=== PATIENT | female | born 1960 | race Caucasian/White ===

== ENCOUNTER 2017-06-20 14:01 | Observation (INO) | payer OTHER ==
[2017-06-20] MEDS ORDERED: Sodium Chloride 0.9% 1,000 ML IV ONE (14:04)
[2017-06-20] MEDS ORDERED: Ondansetron 4 MG/2 ML SDV IVPUSH ONE (14:14)
--- NOTE | 2017-06-20 14:17 | EDM.PDOC ---
ED HPI GENERAL MEDICAL PROBLEM - General Chief Complaint: Diabetic Complaint Stated Complaint: NOT FEELING WELL Time Seen by Provider: 06/20/17 14:02 Source of Information: Reports: Patient, Family History Limitations: Reports: No Limitations - History of Present Illness INITIAL COMMENTS - FREE TEXT/NARRATIVE: HISTORY AND PHYSICAL: History of present illness: Patient is a 56-year-old female who presents to the emergency room with complaints of nausea, vomiting and generalized feeling "unwell" 1 week. Patient is Upper Sor[place]-speaking and does have a family member at the bedside whom she requests to translate. JULIO services was offered (declined). Patient states that over the past week she has had nausea and vomiting and has not been able to keep food or liquids down. As had some intermittent dizziness, headache and weakness which has progressively gotten worse over the past week. Patient was recently diagnosed with type 2 diabetes within the last month and has been placed on Metformin which she has progressively been increasing (as directed by her PCP) to help control her blood sugars. Patient is concerned that this medication is causing her symptoms. Has been checking her blood sugars at home and running in the 100-120 range. Denies any fever, chills, chest pain, shortness of breath, dysuria, diarrhea or constipation. Primary care provider is Dr. Zuniga. Review of systems: As per history of present illness and below otherwise all systems reviewed and negative. Past medical history: As per history of present illness and as reviewed below otherwise noncontributory. Surgical history: As per history of present illness and as reviewed below otherwise noncontributory. Social history: No reported history of drug or alcohol abuse. Family history: As per history of present illness and as reviewed below otherwise noncontributory. Physical exam: General: Well-developed and well-nourished 56-year-old female. Alert and oriented. Nontoxic appearing and in no acute distress. HEENT: Atraumatic, normocephalic, pupils equal and reactive bilaterally, negative for conjunctival pallor or scleral icterus, mucous membranes moist, throat clear, neck supple, nontender, trachea midline. No drooling or trismus noted. No meningeal signs Lungs: Clear to auscultation, breath sounds equal bilaterally, chest nontender. Heart: S1S2, regular rate and rhythm without overt murmur Abdomen: Soft, nondistended, nontender. Negative for masses or hepatosplenomegaly. Negative for costovertebral tenderness. Pelvis: Stable nontender. Genitourinary: Deferred. Rectal: Deferred. Skin: Intact, warm, dry. No lesions or rashes noted. Extremities: Atraumatic, negative for cords or calf pain. Neurovascular unremarkable. Neuro: Awake, alert, oriented. Cranial nerves II through XII unremarkable. Cerebellum unremarkable. Motor and sensory unremarkable throughout. Exam nonfocal. Notes: Upon arrival bedside glucose is 203. We will do routine labs, chest x-ray and EKG. Nursing inform me that her temperature is now over 101, upon arrival was 98.9. We'll obtain BC and give patient some Tylenol and continue to monitor. Temperature is down at this time. VSS. Chest x-ray shows fullness to the right upper lobe, due to her oxygen sat being 92-93% on room air and a white count of 20.9, I am going to treat as a pneumonia. Patient is agreeable to admission. Dr Jesus Wilson was paged at this time. [phone] Dr Wilson is agreeable to keeping this patient as observation. Diagnostics: CBC, CMP, troponin, EKG, one view chest him a UA, bedside blood sugar Therapeutics: IV fluid, Zofran, Rocephin, Azithromycin Impression: Pneumonia Hyponatremia History of Type 2 DM Nausea and Vomiting Plan: Observation admission to Med/Surg Definitive disposition and diagnosis as appropriate pending reevaluation and review of above. Duration: Week(s): Location: Reports: Generalized headache Pain Score (Numeric/FACES): 8 - Related Data Allergies Allergy/AdvReac Type Severity Reaction Status Date / Time No Known Allergies Allergy Verified 06/20/17 14:19 Home Meds: Home Meds Levothyroxine 125 mcg PO DAILY 06/20/17 [History] metFORMIN [Glucophage XR] 500 mg PO DAILY 06/20/17 [History] ED ROS GENERAL - Review of Systems Review Of Systems: ROS reveals no pertinent complaints other than HPI. ED EXAM GENERAL NO PERIP PULSE - Physical Exam Exam: See Below (See dictation) Course - Vital Signs Last Recorded V/S: Last Vital Signs Temp 99.3 F 06/20/17 15:29 Pulse 96 06/20/17 15:29 Resp 16 06/20/17 15:29 BP 106/60 06/20/17 15:29 Pulse Ox 92 L 06/20/17 15:29 - Orders/Labs/Meds Orders: Active Orders 24 hr Category Date Time Status Patient Status [ADT] Stat ADT 06/20/17 16:25 Ordered Blood Glucose Check, Bedside [RC] ONETIME Care 06/20/17 14:05 Active Cardiac Monitoring [RC] . DIRECTED Care 06/20/17 16:25 Ordered EKG Documentation Completion [RC] STAT Care 06/20/17 14:05 Active ABG [BLOOD GAS ARTERIAL] [BG] Stat Lab 06/20/17 14:18 Ordered CULTURE BLOOD [BC] Stat Lab 06/20/17 14:44 Received CULTURE BLOOD [BC] Stat Lab 06/20/17 14:54 Received UA W/MICROSCOPIC [URIN] Stat Lab 06/20/17 14:05 Ordered Azithromycin [Zithromax] 500 mg Med 06/20/17 16:25 Ordered Sodium Chloride 0.9% [Normal Saline] 500 ml IV ONETIME cefTRIAXone [Rocephin in Dextrose,Iso-Osm 1 GM/50 ML] 1 Med 06/20/17 16:25 Ordered gm Premix Bag 1 bag IV ONETIME Blood Culture x2 Reflex Set [OM.PC] Stat Oth 06/20/17 14:32 Ordered Medication Orders Azithromycin 500 mg/ Sodium (Chloride) 500 mls @ 250 mls/hr IV ONETIME ONE Stop: 06/20/17 18:24 Ceftriaxone Sodium/Dextrose 1 (gm/ Premix) 50 mls @ 100 mls/hr IV ONETIME ONE Stop: 06/20/17 16:54 Labs: Laboratory Tests 06/20/17 06/20/17 06/20/17 Range/Units 14:13 14:23 14:23 WBC 20.91 H (4.0-11.0) K/uL RBC 4.41 (4.30-5.90) M/uL Hgb 13.8 (12.0-16.0) g/dL Hct 37.6 (36.0-46.0) % MCV 85.3 (80.0-98.0) fL MCH 31.3 (27.0-32.0) pg MCHC 36.7 (31.0-37.0) g/dL RDW Std Deviation 36.8 (28.0-62.0) fl RDW Coeff of Hans 12 (11.0-15.0) % Plt Count 233 (150-400) K/uL MPV 8.60 (7.40-12.00) fL Add Manual Diff YES Neutrophils % (Manual) 62 (48.0-80.0) % Band Neutrophils % 27 % Lymphocytes % (Manual) 3 L (16.0-40.0) % Monocytes % (Manual) 8 (0.0-15.0) % Nucleated RBC % 0.0 /100WBC Absolute Seg Neuts 13.0 H (1.4-5.7) Band Neutrophils # 5.6 Lymphocytes # (Manual) 0.6 (0.6-2.4) Monocytes # (Manual) 1.7 H (0.0-0.8) Nucleated RBCs # 0 K/uL Sodium 129 L (136-145) mmol/L Potassium 3.6 (3.5-5.1) mmol/L Chloride 95 L (98-107) mmol/L Carbon Dioxide 21.4 (21.0-32.0) mmol/L BUN 13 (7.0-18.0) mg/dL Creatinine 0.8 (0.6-1.0) mg/dL Est Cr Clr Drug Dosing TNP Estimated GFR (MDRD) > 60.0 ml/min Glucose 203 H (74-106) mg/dL POC Glucose 203 H (60-110) mg/dL Calcium 8.4 L (8.5-10.1) mg/dL Total Bilirubin 0.6 (0.2-1.0) mg/dL AST 18 (15-37) IU/L ALT 17 (14-63) IU/L Alkaline Phosphatase 72 (46-116) U/L Troponin I < 0.050 (0.000-0.056) ng/mL Total Protein 8.4 H (6.4-8.2) g/dL Albumin 3.6 (3.4-5.0) g/dL Globulin 4.8 H (2.0-3.5) g/dL Albumin/Globulin Ratio 0.8 L (1.3-2.8) Meds: Medications Generic Name Dose Route Start Last Admin Trade Name Freq PRN Reason Stop Dose Admin Azithromycin 500 mg/ Sodium 500 mls @ 250 mls/hr 06/20/17 16:25 Chloride IV 06/20/17 18:24 ONETIME ONE Ceftriaxone Sodium/Dextrose 1 50 mls @ 100 mls/hr 06/20/17 16:25 gm/ Premix IV 06/20/17 16:54 ONETIME ONE Discontinued Medications Generic Name Dose Route Start Last Admin Trade Name Liza PRN Reason Stop Dose Admin Acetaminophen 1,000 mg 06/20/17 14:32 06/20/17 14:53 Tylenol Extra Strength PO 06/20/17 14:33 1,000 mg ONETIME ONE Administration Sodium Chloride 1,000 mls @ 999 mls/hr 06/20/17 14:04 06/20/17 14:27 Normal Saline IV 06/20/17 15:04 999 mls/hr STAT ONE Administration Ketorolac Tromethamine 30 mg 06/20/17 14:20 06/20/17 14:27 Toradol IVPUSH 06/20/17 14:21 30 mg ONETIME ONE Administration Ketorolac Tromethamine Confirm 06/20/17 14:21 06/20/17 14:33 Toradol Administered 06/20/17 14:22 Not Given Dose 30 mg .ROUTE .STK-MED ONE Ondansetron HCl 4 mg 06/20/17 14:14 06/20/17 14:26 Zofran IVPUSH 06/20/17 14:15 4 mg ONETIME ONE Administration Departure - Departure Time of Disposition: 16:28 Disposition: Refer to Observation Clinical Impression: Hyponatremia, History of diabetes mellitus, type II Pneumonia Qualifiers: Pneumonia type: due to unspecified organism Laterality: right Lung location: upper lobe of lung Qualified Code(s): J18.1 - Lobar pneumonia, unspecified organism Nausea & vomiting Qualifiers: Vomiting type: unspecified Vomiting Intractability: non-intractable Qualified Code(s): R11.2 - Nausea with vomiting, unspecified - Discharge Information Referrals: PCP,None [Primary Care Provider] - Forms: ED Department Discharge - My Orders Last 24 Hours: My Active Orders 06/20/17 14:05 Blood Glucose Check, Bedside [RC] ONETIME EKG Documentation Completion [RC] STAT UA W/MICROSCOPIC [URIN] Stat 06/20/17 14:18 ABG [BLOOD GAS ARTERIAL] [BG] Stat 06/20/17 14:32 Blood Culture x2 Reflex Set [OM.PC] Stat 05/11/18 14:44 CULTURE BLOOD [BC] Stat 06/20/17 14:54 CULTURE BLOOD [BC] Stat 06/20/17 16:25 Patient Status [ADT] Stat Cardiac Monitoring [RC] . DIRECTED Azithromycin [Zithromax] 500 mg Sodium Chloride 0.9% [Normal Saline] 500 ml IV ONETIME cefTRIAXone [Rocephin in Dextrose,Iso-Osm 1 GM/50 ML] 1 gm Premix Bag 1 bag IV ONETIME - Assessment/Plan Last 24 Hours: My Active Orders 06/20/17 14:05 Blood Glucose Check, Bedside [RC] ONETIME EKG Documentation Completion [RC] STAT UA W/MICROSCOPIC [URIN] Stat 06/20/17 14:18 ABG [BLOOD GAS ARTERIAL] [BG] Stat 06/20/17 14:32 Blood Culture x2 Reflex Set [OM.PC] Stat 06/20/17 14:44 CULTURE BLOOD [BC] Stat 06/20/17 14:54 CULTURE BLOOD [BC] Stat 06/20/17 16:25 Patient Status [ADT] Stat Cardiac Monitoring [RC] . DIRECTED Azithromycin [Zithromax] 500 mg Sodium Chloride 0.9% [Normal Saline] 500 ml IV ONETIME cefTRIAXone [Rocephin in Dextrose,Iso-Osm 1 GM/50 ML] 1 gm Premix Bag 1 bag IV ONETIME
[2017-06-20] MEDS ORDERED: Ketorolac 30 MG/ML SDV IVPUSH ONE (14:20)
[2017-06-20] MEDS ORDERED: Ketorolac 30 MG/ML SDV ONE (14:21)
[2017-06-20] MEDS ORDERED: Acetaminophen 500 MG Tab PO ONE (14:32)
[2017-06-20 14:56] LABS: CHLORIDE,CL 95 mmol/L (98-107); SODIUM,NA 129 mmol/L (136-145)
--- NOTE | 2017-06-20 15:25 | CT ---
EXAMINATION: Non contrast CT head. Coronal and sagittal reformats. HISTORY: Pain FINDINGS: No evidence of intra or extra axial hemorrhage, mass, midline shift, hydrocephalus or edema. No hyp oattenuation changes in the major vascular territories to suggest acute infarct. Minimal subcortical white matter hypodensities noted frontally. No abnormal intracranial calcifications are detected. No evidence of substantial vascular calcificat ions. Small amount of fluid noted within the maxillary sinuses and the left sphenoid sinus. Mucosal thicken ing within the ethmoid air cells. Mastoid air cells are clear. Orbits and globes are symmetric. Pituitary fossa appears unremarkable. The calvarium is intact. No evidence of skull fracture. IMPRESSION: 1. No acute intracranial findings. 2. Mild paranasal sinus disease. 3. Likely early small vessel ischemic changes.
--- NOTE | 2017-06-20 15:30 | CR ---
EXAMINATION: PA chest radiograph. HISTORY: Feeling unwell. FINDINGS: The trachea is midline. The cardiomediastinal silhouette is within normal limits. Trace right suprahi lar fullness. No pleural effusion or pneumothorax. Osseous structures appear unremarkable. IMPRESSION: Trace right suprahilar fullness, a minimal underlying infiltrate cannot be excluded.
[2017-06-20] MEDS ORDERED: Azithromycin 500 MG in Sodium Chloride 0.9% 500 ML IV ONE (16:25)
[2017-06-20] MEDS ORDERED: Azithromycin 500 MG AdvVial IV ONE (17:05)
[2017-06-20] MEDS ORDERED: Sodium Chloride 0.9% 250 ML ONE (17:07)
[2017-06-20] MEDS ORDERED: Azithromycin 500 MG in Sodium Chloride 0.9% 250 ML IV ONE (17:23)
[2017-06-20] MEDS: cefTRIAXone 1 GM in Premix Bag 1 BAG IV ONE ×2 (17:24→20:00)
[2017-06-20] MEDS ORDERED: Albuterol/Ipratropium 3.0-0.5 MG/3 ML Neb Soln NEB PRN (17:56)
[2017-06-20] MEDS ORDERED: Ondansetron 4 MG/2 ML SDV IVPUSH PRN (17:56)
[2017-06-20] MEDS ORDERED: Docusate Sodium 100 MG Cap PO PRN (17:56)
--- NOTE | 2017-06-20 18:26 | PCM.HP ---
H&P History of Present Illness - General Date of Service: 06/20/17 Admit Problem/Dx: Admission Diagnosis/Problem Admission Diagnosis/Problem Pneumonia - History of Present Illness Initial Comments - Free Text/Narative: 56-year-old female with history of NIDDM and Hypothyroidsim is admitted for CAP , Hyponatremia, Nausea and Vomiting. She does not speak [place]i but daughter is fluent and present for translation. For the past 5 days she has been experiencing nausea, vomiting, productive cough with yellow sputum and sob. She had fever yesterday but did not measure it. She was diagnosed with DM 2 months ago and was started on Metformin. Patient thinks that this is all related to her Metformin. Symptoms continued to worsen and therefore she decided to present to ED. Primary care provider is Dr. Zuniga. In the ED she was febrile with mild tachycardia. CBC, CMP, troponin, EKG and CXR were obtained. She was found to have WBC count 20k, Na 129, glucose 203. CXR was consistent with pneumonia. She was treated with IVF, Zofran and single dose of Azithromycin 500 mg IV. headache Pain Score (Numeric/FACES): 8 - Related Data Allergies/Adverse Reactions: Allergies Allergy/AdvReac Type Severity Reaction Status Date / Time No Known Allergies Allergy Verified 06/20/17 14:19 Home Medications: Home Meds Levothyroxine 125 mcg PO DAILY 06/20/17 [History] metFORMIN [Glucophage XR] 500 mg PO DAILY 06/20/17 [History] Past Medical History HEENT History: Reports: None Cardiovascular History: Reports: None Respiratory History: Reports: None Gastrointestinal History: Reports: None Genitourinary History: Reports: None [employer]IAN History: Reports: Musculoskeletal History: Reports: None Neurological History: Reports: None Psychiatric History: Reports: None Endocrine/Metabolic History: Reports: Diabetes, Type II, Hypothyroidism Hematologic History: Reports: None Immunologic History: Reports: None Oncologic (Cancer) History: Reports: None Dermatologic History: Reports: None - Past Surgical History Head Surgeries/Procedures: Reports: None HEENT Surgical History: Reports: None Cardiovascular Surgical History: Reports: None Respiratory Surgical History: Reports: None GI Surgical History: Reports: None Female Surgical History: Reports: None Endocrine Surgical History: Reports: Thyroid Biopsy Neurological Surgical History: Reports: None Musculoskeletal Surgical History: Reports: None Oncologic Surgical History: Reports: None Dermatological Surgical History: Reports: None Social & Family History - Family History Family Medical History: Noncontributory - Tobacco Use Smoking Status *Q: Never Smoker Second Hand Smoke Exposure: No - Caffeine Use Caffeine Use: Reports: None - Recreational Drug Use Recreational Drug Use: No H&P Review of Systems - Review of Systems: Review Of Systems: See Below General: Reports: No Symptoms HEENT: Reports: No Symptoms Pulmonary: Reports: Shortness of Breath, Cough, Sputum Cardiovascular: Reports: No Symptoms Gastrointestinal: Reports: Diarrhea, Nausea, Vomiting Genitourinary: Reports: No Symptoms Musculoskeletal: Reports: No Symptoms Skin: Reports: No Symptoms Psychiatric: Reports: No Symptoms Neurological: Reports: Headache, Numbness, Tingling Hematologic/Lymphatic: Reports: No Symptoms Immunologic: Reports: No Symptoms Exam - Exam Exam: See Below - Vital Signs Vital Signs: Last Vital Signs Temp 37.4 C 06/20/17 15:29 Pulse 96 06/20/17 15:29 Resp 16 06/20/17 15:29 BP 106/60 06/20/17 15:29 Pulse Ox 92 L 06/20/17 15:29 Weight: 64.41 kg - Exam General: Alert, Oriented, Cooperative HEENT: Conjunctiva Clear, EACs Clear, EOMI, Hearing Intact, Mucosa Moist & [place] , Nares Patent, Normal Nasal Septum, Posterior Pharynx Clear, Pupils Equal, Pupils Reactive Neck: Supple, Trachea Midline Lungs: Clear to Auscultation, Normal Respiratory Effort Cardiovascular: Regular Rate, Regular Rhythm GI/Abdominal Exam: Normal Bowel Sounds, Soft, Non-Tender, No Distention Extremities: Normal Inspection, No Pedal Edema, Normal Capillary Refill Skin: Warm, Dry, Intact Neurological: Cranial Nerves Intact Neuro Extensive - Mental Status: Alert, Oriented x3 Psychiatric: Alert, Normal Affect, Normal Mood - Patient Data Lab Results Last 24 hrs: Laboratory Results - last 24 hr 06/20/17 06/20/17 06/20/17 Range/Units 14:13 14:23 14:23 WBC 20.91 H (4.0-11.0) K/uL RBC 4.41 (4.30-5.90) M/uL Hgb 13.8 (12.0-16.0) g/dL Hct 37.6 (36.0-46.0) % MCV 85.3 (80.0-98.0) fL MCH 31.3 (27.0-32.0) pg MCHC 36.7 (31.0-37.0) g/dL RDW Std Deviation 36.8 (28.0-62.0) fl RDW Coeff of Hans 12 (11.0-15.0) % Plt Count 233 (150-400) K/uL MPV 8.60 (7.40-12.00) fL Add Manual Diff YES Neutrophils % (Manual) 62 (48.0-80.0) % Band Neutrophils % 27 % Lymphocytes % (Manual) 3 L (16.0-40.0) % Monocytes % (Manual) 8 (0.0-15.0) % Nucleated RBC % 0.0 /100WBC Absolute Seg Neuts 13.0 H (1.4-5.7) Band Neutrophils # 5.6 Lymphocytes # (Manual) 0.6 (0.6-2.4) Monocytes # (Manual) 1.7 H (0.0-0.8) Nucleated RBCs # 0 K/uL Sodium 129 L (136-145) mmol/L Potassium 3.6 (3.5-5.1) mmol/L Chloride 95 L (98-107) mmol/L Carbon Dioxide 21.4 (21.0-32.0) mmol/L BUN 13 (7.0-18.0) mg/dL Creatinine 0.8 (0.6-1.0) mg/dL Est Cr Clr Drug Dosing TNP Estimated GFR (MDRD) > 60.0 ml/min Glucose 203 H (74-106) mg/dL POC Glucose 203 H (60-110) mg/dL Calcium 8.4 L (8.5-10.1) mg/dL Total Bilirubin 0.6 (0.2-1.0) mg/dL AST 18 (15-37) IU/L ALT 17 (14-63) IU/L Alkaline Phosphatase 72 (46-116) U/L Troponin I < 0.050 (0.000-0.056) ng/mL Total Protein 8.4 H (6.4-8.2) g/dL Albumin 3.6 (3.4-5.0) g/dL Globulin 4.8 H (2.0-3.5) g/dL Albumin/Globulin Ratio 0.8 L (1.3-2.8) Result Diagrams: 06/20/17 14:23 06/20/17 14:23 Problem List Initiated/Reviewed/Updated: Yes Orders Last 24hrs: Active Orders 24 hr Category Date Time Status Patient Status [ADT] Routine ADT 06/20/17 17:56 Ordered Patient Status [ADT] Stat ADT 06/20/17 16:25 Active Blood Glucose Check, Bedside [RC] ONETIME Care 06/20/17 14:05 Active Blood Glucose Check, Bedside [RC] QIDACANDBED Care 06/20/17 17:56 Ordered Cardiac Monitoring [RC] . DIRECTED Care 06/20/17 16:25 Active EKG Documentation Completion [RC] STAT Care 06/20/17 14:05 Active Intake and Output [RC] QSHIFT Care 06/20/17 17:58 Ordered May Shower [RC] ASDIRECTED Care 06/20/17 17:56 Ordered Oxygen Therapy [RC] PRN Care 06/20/17 17:56 Ordered Oxygen Therapy, ED [RC] ASDIRECTED Care 06/20/17 16:30 Active RT Aerosol Therapy [RC] ASDIRECTED Care 06/20/17 18:03 Ordered Up ad Ela [RC] ASDIRECTED Care 06/20/17 17:56 Ordered VTE/DVT Education [RC] PER UNIT ROUTINE Care 06/20/17 17:56 Ordered Vital Signs [RC] Q4H Care 06/20/17 17:56 Ordered [employer] Diet [DIET] Diet 06/20/17 Breakfast Active Fluid Restriction [DIET] Diet 06/21/17 Breakfast Ordered ABG [BLOOD GAS ARTERIAL] [BG] Stat Lab 06/20/17 14:18 Ordered BASIC METABOLIC PANEL,BMP [CHEM] AM Lab 06/21/17 05:11 Ordered BASIC METABOLIC PANEL,BMP [CHEM] AM Lab 06/22/17 05:11 Ordered BASIC METABOLIC PANEL,BMP [CHEM] AM Lab 06/23/17 05:11 Ordered BASIC METABOLIC PANEL,BMP [CHEM] AM Lab 06/24/17 05:11 Ordered BASIC METABOLIC PANEL,BMP [CHEM] AM Lab 06/25/17 05:11 Ordered CBC WITH AUTO DIFF [HEME] AM Lab 06/21/17 05:11 Ordered CBC WITH AUTO DIFF [HEME] AM Lab 06/22/17 05:11 Ordered CBC WITH AUTO DIFF [HEME] AM Lab 06/23/17 05:11 Ordered CBC WITH AUTO DIFF [HEME] AM Lab 06/24/17 05:11 Ordered CBC WITH AUTO DIFF [HEME] AM Lab 06/25/17 05:11 Ordered CULTURE BLOOD [BC] Stat Lab 06/20/17 14:44 Received CULTURE BLOOD [BC] Stat Lab 06/20/17 14:54 Received CULTURE SPUTUM + SMEAR [RM] Routine Lab 06/20/17 17:56 Ordered UA W/MICROSCOPIC [URIN] Stat Lab 06/20/17 14:05 Ordered Acetaminophen [Tylenol] Med 06/20/17 17:56 Ordered 650 mg PO Q4H PRN Albuterol/Ipratropium [DuoNeb 3.0-0.5 MG/3 ML] Med 06/20/17 17:56 Ordered 3 ml NEB Q4HRRT PRN Azithromycin [Zithromax] Med 06/21/17 16:00 Ordered 500 mg PO Q24H Docusate Sodium [Colace] Med 06/20/17 17:56 Ordered 100 mg PO BID PRN Heparin Sodium Med 06/20/17 18:00 Ordered 5,000 units SUBCUT Q8H Insulin Aspart [NovoLOG] Med 06/21/17 07:30 Ordered See Protocol SUBCUT TIDAC Ondansetron [Zofran] Med 06/20/17 17:56 Ordered 4 mg IVPUSH Q6H PRN cefTRIAXone [Rocephin] 1 gm Med 06/21/17 16:00 Ordered Sodium Chloride 0.9% [Normal Saline] 50 ml IV Q24H Blood Culture x2 Reflex Set [OM.PC] Stat Oth 06/20/17 14:32 Ordered Sequential Compression Device [OM.PC] Per Unit Routine Oth 06/20/17 17:59 Ordered Resuscitation Status Routine Resus Stat 06/20/17 17:56 Ordered Medication Orders Acetaminophen (Tylenol) 650 mg PO Q4H PRN PRN Reason: Pain (Mild 1-3)/fever Albuterol/Ipratropium (Duoneb 3.0-0.5 Mg/3 Ml) 3 ml NEB Q4HRRT PRN PRN Reason: Shortness Of Breath/wheezing Azithromycin (Zithromax) 500 mg PO Q24H PAULA Docusate Sodium (Colace) 100 mg PO BID PRN PRN Reason: Constipation Heparin Sodium (Porcine) (Heparin Sodium) 5,000 units SUBCUT Q8H PAULA Ceftriaxone Sodium 1 gm/ (Sodium Chloride) 50 mls @ 100 mls/hr IV Q24H PAULA Insulin Aspart (Novolog) 0 unit SUBCUT TIDAC PAULA; Protocol Ondansetron HCl (Zofran) 4 mg IVPUSH Q6H PRN PRN Reason: Nausea/Vomiting Assessment/Plan Comment:: 56 yo fm with history of Hypothyroidism and NIDDM admitted for CAP, hyponatremia , Nausea and vomiting #CAP, right upper lobe #Fever, secondary to CAP #Leukocytosis, secondary to CAP -no hypoxia or underlying lung disease but patient unable to tolerate po intake due to nausea and vomiting -WBC count 20k -CXR reveals right suprahilar opacity Plan: -continue Azithromycin and start Rocephin -start duonebs PRN for SOB -IV NS 500 ml bolus @ 75 ml/hour -f/u blood cultures drawn in ED -obtain sputum cultures -continue monitoring #Hyponatremia, mild -corrected Na 130 -likely hypovolemic -presumed symptomatic due to nausea and vomiting -duration unknown Plan: -PO Fluid restriction 1000 ml QD, may increase if Na improving -continue to monitor #Nausea and vomiting -likely secondary to hyponatremia -Zofran 4 mg IV Q4H PRN #NIDDM -recently diagnosed, on Metformin 500 mg BID plan: -hold Metformin -start SSI low dose -BG check TIDAC and bedtime #Hypothyroidism -resume home meds DVT Prophylaxis: Heparin Code: full Diet: ADA, fluid restriction
[2017-06-20] MEDS ORDERED: Sodium Chloride 0.9% 500 ML IV ONE (19:06)
[2017-06-20] MEDS: Heparin Sodium 5,000 Units/ML Vial SUBCUT SCH (20:04)
[2017-06-20] MEDS: Acetaminophen 325 MG Tab PO PRN (20:09)
[2017-06-21] MEDS: Heparin Sodium 5,000 Units/ML Vial SUBCUT SCH ×3 (02:48→17:43)
[2017-06-21 06:48] LABS: CHLORIDE,CL 101 mmol/L (98-107); SODIUM,NA 133 mmol/L (136-145)
[2017-06-21] MEDS: Insulin Aspart 100 Units/ML 3 ML Pen SUBCUT SCH ×3 (07:36→16:32)
[2017-06-21] MEDS ORDERED: Ketorolac 30 MG/ML SDV IVPUSH ONE ×2 (08:00→16:20)
--- NOTE | 2017-06-21 08:25 | PCM.PN ---
- General Info Date of Service: 06/21/17 Admission Dx/Problem (Free Text): Admission Diagnosis/Problem Admission Diagnosis/Problem Pneumonia Subjective Update: Patient states she is improving. No overnight events. No fever. SOB is improving. She does not feel nauseous yet but has yet to have breakfast. She is feeling hungry and is willing to try to eat. Functional Status: Reports: Pain Controlled, Ambulating, Urinating - Review of Systems General: Reports: No Symptoms HEENT: Reports: No Symptoms Pulmonary: Reports: No Symptoms Cardiovascular: Reports: No Symptoms Gastrointestinal: Reports: No Symptoms Genitourinary: Reports: No Symptoms Musculoskeletal: Reports: No Symptoms Skin: Reports: No Symptoms Neurological: Reports: Headache Psychiatric: Reports: No Symptoms - Patient Data Vitals - Most Recent: Last Vital Signs Temp 36.5 C 06/21/17 04:00 Pulse 55 L 06/21/17 04:00 Resp 16 06/21/17 04:00 BP 98/56 L 06/21/17 04:00 Pulse Ox 94 L 06/21/17 04:00 Weight - Most Recent: 64.41 kg I&O - Last 24 Hours: Intake & Output 06/20/17 06/21/17 06/21/17 22:59 06:59 14:59 Intake Total 1200 Output Total 300 Balance 900 Lab Results Last 24 Hours: Laboratory Results - last 24 hr 06/20/17 06/20/17 06/20/17 Range/Units 14:13 14:23 14:23 WBC 20.91 H (4.0-11.0) K/uL RBC 4.41 (4.30-5.90) M/uL Hgb 13.8 (12.0-16.0) g/dL Hct 37.6 (36.0-46.0) % MCV 85.3 (80.0-98.0) fL MCH 31.3 (27.0-32.0) pg MCHC 36.7 (31.0-37.0) g/dL RDW Std Deviation 36.8 (28.0-62.0) fl RDW Coeff of Hans 12 (11.0-15.0) % Plt Count 233 (150-400) K/uL MPV 8.60 (7.40-12.00) fL Neut % (Auto) (48.0-80.0) % Lymph % (Auto) (16.0-40.0) % [place] % (Auto) (0.0-15.0) % Eos % (Auto) (0.0-7.0) % Baso % (Auto) (0.0-1.5) % Neut # (Auto) (1.4-5.7) K/uL Lymph # (Auto) (0.6-2.4) K/uL [place] # (Auto) (0.0-0.8) K/uL Eos # (Auto) (0.0-0.7) K/uL Baso # (Auto) (0.0-0.1) K/uL Add Manual Diff YES Neutrophils % (Manual) 62 (48.0-80.0) % Band Neutrophils % 27 % Lymphocytes % (Manual) 3 L (16.0-40.0) % Monocytes % (Manual) 8 (0.0-15.0) % Nucleated RBC % 0.0 /100WBC Absolute Seg Neuts 13.0 H (1.4-5.7) Band Neutrophils # 5.6 Lymphocytes # (Manual) 0.6 (0.6-2.4) Monocytes # (Manual) 1.7 H (0.0-0.8) Nucleated RBCs # 0 K/uL Sodium 129 L (136-145) mmol/L Potassium 3.6 (3.5-5.1) mmol/L Chloride 95 L (98-107) mmol/L Carbon Dioxide 21.4 (21.0-32.0) mmol/L BUN 13 (7.0-18.0) mg/dL Creatinine 0.8 (0.6-1.0) mg/dL Est Cr Clr Drug Dosing TNP Estimated GFR (MDRD) > 60.0 ml/min Glucose 203 H (74-106) mg/dL POC Glucose 203 H (60-110) mg/dL Calcium 8.4 L (8.5-10.1) mg/dL Total Bilirubin 0.6 (0.2-1.0) mg/dL AST 18 (15-37) IU/L ALT 17 (14-63) IU/L Alkaline Phosphatase 72 (46-116) U/L Troponin I < 0.050 (0.000-0.056) ng/mL Total Protein 8.4 H (6.4-8.2) g/dL Albumin 3.6 (3.4-5.0) g/dL Globulin 4.8 H (2.0-3.5) g/dL Albumin/Globulin Ratio 0.8 L (1.3-2.8) 06/20/17 06/21/17 06/21/17 Range/Units 18:47 06:09 06:18 WBC 19.49 H (4.0-11.0) K/uL RBC 3.92 L (4.30-5.90) M/uL Hgb 11.6 L (12.0-16.0) g/dL Hct 33.4 L (36.0-46.0) % MCV 85.2 (80.0-98.0) fL MCH 29.6 (27.0-32.0) pg MCHC 34.7 (31.0-37.0) g/dL RDW Std Deviation 36.7 (28.0-62.0) fl RDW Coeff of Hans 12 (11.0-15.0) % Plt Count 202 (150-400) K/uL MPV 8.40 (7.40-12.00) fL Neut % (Auto) 85.2 H (48.0-80.0) % Lymph % (Auto) 9.7 L (16.0-40.0) % [place] % (Auto) 5.0 (0.0-15.0) % Eos % (Auto) 0.0 (0.0-7.0) % Baso % (Auto) 0.1 (0.0-1.5) % Neut # (Auto) 16.6 H (1.4-5.7) K/uL Lymph # (Auto) 1.9 (0.6-2.4) K/uL [place] # (Auto) 1.0 H (0.0-0.8) K/uL Eos # (Auto) 0.0 (0.0-0.7) K/uL Baso # (Auto) 0.0 (0.0-0.1) K/uL Add Manual Diff Neutrophils % (Manual) (48.0-80.0) % Band Neutrophils % % Lymphocytes % (Manual) (16.0-40.0) % Monocytes % (Manual) (0.0-15.0) % Nucleated RBC % 0.0 /100WBC Absolute Seg Neuts (1.4-5.7) Band Neutrophils # Lymphocytes # (Manual) (0.6-2.4) Monocytes # (Manual) (0.0-0.8) Nucleated RBCs # 0 K/uL Sodium (136-145) mmol/L Potassium (3.5-5.1) mmol/L Chloride (98-107) mmol/L Carbon Dioxide (21.0-32.0) mmol/L BUN (7.0-18.0) mg/dL Creatinine (0.6-1.0) mg/dL Est Cr Clr Drug Dosing Estimated GFR (MDRD) ml/min Glucose (74-106) mg/dL POC Glucose 163 H 111 H (60-110) mg/dL Calcium (8.5-10.1) mg/dL Total Bilirubin (0.2-1.0) mg/dL AST (15-37) IU/L ALT (14-63) IU/L Alkaline Phosphatase (46-116) U/L Troponin I (0.000-0.056) ng/mL Total Protein (6.4-8.2) g/dL Albumin (3.4-5.0) g/dL Globulin (2.0-3.5) g/dL Albumin/Globulin Ratio (1.3-2.8) /18 Range/Units 06:18 WBC (4.0-11.0) K/uL RBC (4.30-5.90) M/uL Hgb (12.0-16.0) g/dL Hct (36.0-46.0) % MCV (80.0-98.0) fL MCH (27.0-32.0) pg MCHC (31.0-37.0) g/dL RDW Std Deviation (28.0-62.0) fl RDW Coeff of Hans (11.0-15.0) % Plt Count (150-400) K/uL MPV (7.40-12.00) fL Neut % (Auto) (48.0-80.0) % Lymph % (Auto) (16.0-40.0) % [place] % (Auto) (0.0-15.0) % Eos % (Auto) (0.0-7.0) % Baso % (Auto) (0.0-1.5) % Neut # (Auto) (1.4-5.7) K/uL Lymph # (Auto) (0.6-2.4) K/uL [place] # (Auto) (0.0-0.8) K/uL Eos # (Auto) (0.0-0.7) K/uL Baso # (Auto) (0.0-0.1) K/uL Add Manual Diff Neutrophils % (Manual) (48.0-80.0) % Band Neutrophils % % Lymphocytes % (Manual) (16.0-40.0) % Monocytes % (Manual) (0.0-15.0) % Nucleated RBC % /100WBC Absolute Seg Neuts (1.4-5.7) Band Neutrophils # Lymphocytes # (Manual) (0.6-2.4) Monocytes # (Manual) (0.0-0.8) Nucleated RBCs # K/uL Sodium 133 L (136-145) mmol/L Potassium 3.3 L (3.5-5.1) mmol/L Chloride 101 (98-107) mmol/L Carbon Dioxide 19.1 L (21.0-32.0) mmol/L BUN 12 (7.0-18.0) mg/dL Creatinine 0.7 (0.6-1.0) mg/dL Est Cr Clr Drug Dosing TNP Estimated GFR (MDRD) > 60.0 ml/min Glucose 125 H (74-106) mg/dL POC Glucose (60-110) mg/dL Calcium 7.4 L (8.5-10.1) mg/dL Total Bilirubin (0.2-1.0) mg/dL AST (15-37) IU/L ALT (14-63) IU/L Alkaline Phosphatase (46-116) U/L Troponin I (0.000-0.056) ng/mL Total Protein (6.4-8.2) g/dL Albumin (3.4-5.0) g/dL Globulin (2.0-3.5) g/dL Albumin/Globulin Ratio (1.3-2.8) Franky Results Last 24 Hours: Microbiology 06/20/17 19:20 Gram Stain - Preliminary Sputum - Expectorated Med Orders - Current: Current Medications Acetaminophen (Tylenol) 650 mg PO Q4H PRN PRN Reason: Pain (Mild 1-3)/fever Last Admin: 06/20/17 20:09 Dose: 650 mg Albuterol/Ipratropium (Duoneb 3.0-0.5 Mg/3 Ml) 3 ml NEB Q4HRRT PRN PRN Reason: Shortness Of Breath/wheezing Azithromycin (Zithromax) 500 mg PO Q24H [facility] Docusate Sodium (Colace) 100 mg PO BID PRN PRN Reason: Constipation Heparin Sodium (Porcine) (Heparin Sodium) 5,000 units SUBCUT Q8H [facility] Last Admin: 06/21/17 02:48 Dose: 5,000 units Ceftriaxone Sodium 1 gm/ (Sodium Chloride) 50 mls @ 100 mls/hr IV Q24H [facility] Insulin Aspart (Novolog) 0 unit SUBCUT TIDAC [facility]; Protocol Last Admin: 06/21/17 07:36 Dose: Not Given Levothyroxine Sodium (Levothyroxine) 125 mcg PO DAILY [facility] Ondansetron HCl (Zofran) 4 mg IVPUSH Q6H PRN PRN Reason: Nausea/Vomiting Last Admin: 06/21/17 08:07 Dose: 4 mg Discontinued Medications Acetaminophen (Tylenol Extra Strength) 1,000 mg PO ONETIME ONE Stop: 06/20/17 14:33 Last Admin: 06/20/17 14:53 Dose: 1,000 mg Azithromycin (Zithromax) Confirm Administered Dose 500 mg IV .STK-MED ONE Stop: 06/20/17 17:06 Last Admin: 06/20/17 17:11 Dose: 500 mg Sodium Chloride (Normal Saline) 1,000 mls @ 999 mls/hr IV STAT ONE Stop: 06/20/17 15:04 Last Admin: 06/20/17 14:27 Dose: 999 mls/hr Azithromycin 500 mg/ Sodium (Chloride) 500 mls @ 250 mls/hr IV ONETIME ONE Stop: 06/20/17 18:24 Last Admin: 06/20/17 17:26 Dose: Not Given Ceftriaxone Sodium/Dextrose 1 (gm/ Premix) 50 mls @ 100 mls/hr IV ONETIME ONE Stop: 06/20/17 16:54 Last Admin: 06/20/17 20:00 Dose: 100 mls/hr Sodium Chloride (Normal Saline) Confirm Administered Dose 250 mls @ as directed .ROUTE .STK-MED ONE Stop: 06/20/17 17:08 Last Admin: 06/20/17 17:24 Dose: Not Given Azithromycin 500 mg/ Sodium (Chloride) 250 mls @ 250 mls/hr IV ONETIME ONE Stop: 06/20/17 17:24 Last Admin: 06/20/17 17:18 Dose: 250 mls/hr Sodium Chloride (Normal Saline) 500 mls @ 75 mls/hr IV .BOLUS ONE Stop: 06/21/17 01:45 Last Admin: 06/20/17 19:46 Dose: 75 mls/hr Ketorolac Tromethamine (Toradol) 30 mg IVPUSH ONETIME ONE Stop: 06/20/17 14:21 Last Admin: 06/20/17 14:27 Dose: 30 mg Ketorolac Tromethamine (Toradol) Confirm Administered Dose 30 mg .ROUTE .STK- MED ONE Stop: 06/20/17 14:22 Last Admin: 06/20/17 14:33 Dose: Not Given Ketorolac Tromethamine (Toradol) 30 mg IVPUSH ONETIME ONE Stop: 06/21/17 08:01 Ondansetron HCl (Zofran) 4 mg IVPUSH ONETIME ONE Stop: 06/20/17 14:15 Last Admin: 06/20/17 14:26 Dose: 4 mg - Exam General: Alert, Oriented HEENT: Pupils Equal, Pupils Reactive, EOMI, Mucous Membr. Moist/[place] Neck: Supple Lungs: Clear to Auscultation, Normal Respiratory Effort Cardiovascular: Regular Rate, Regular Rhythm Back Exam: Normal Inspection Extremities: Normal Inspection, No Pedal Edema, Normal Capillary Refill Skin: Warm, Dry, Intact Neurological: No New Focal Deficit Psy/Mental Status: Alert, Normal Affect, Normal Mood - Problem List Review Problem List Initiated/Reviewed/Updated: Yes - My Orders Last 24 Hours: My Active Orders 06/20/17 17:56 Patient Status [ADT] Routine Blood Glucose Check, Bedside [RC] QIDACANDBED May Shower [RC] ASDIRECTED Oxygen Therapy [RC] PRN Up ad Ela [RC] ASDIRECTED VTE/DVT Education [RC] PER UNIT ROUTINE Vital Signs [RC] Q4H Acetaminophen [Tylenol] 650 mg PO Q4H PRN Albuterol/Ipratropium [DuoNeb 3.0-0.5 MG/3 ML] 3 ml NEB Q4HRRT PRN Docusate Sodium [Colace] 100 mg PO BID PRN Ondansetron [Zofran] 4 mg IVPUSH Q6H PRN Resuscitation Status Routine 06/20/17 17:58 Intake and Output [RC] QSHIFT 06/20/17 17:59 Sequential Compression Device [OM.PC] Per Unit Routine 06/20/17 18:00 Heparin Sodium 5,000 units SUBCUT Q8H 06/20/17 18:03 RT Aerosol Therapy [RC] ASDIRECTED 06/20/17 19:20 CULTURE SPUTUM + SMEAR [RM] Routine 06/21/17 07:30 Insulin Aspart [NovoLOG] See Protocol SUBCUT TIDAC 06/21/17 09:00 Levothyroxine 125 mcg PO DAILY 06/21/17 16:00 cefTRIAXone [Rocephin] 1 gm Sodium Chloride 0.9% [Normal Saline] 50 ml IV Q24H 06/21/17 17:00 Azithromycin [Zithromax] 500 mg PO Q24H 06/21/17 Breakfast Fluid Restriction [DIET] 06/22/17 05:11 BASIC METABOLIC PANEL,BMP [CHEM] AM CBC WITH AUTO DIFF [HEME] AM 06/23/17 05:11 BASIC METABOLIC PANEL,BMP [CHEM] AM CBC WITH AUTO DIFF [HEME] AM 06/24/17 05:11 BASIC METABOLIC PANEL,BMP [CHEM] AM CBC WITH AUTO DIFF [HEME] AM 06/25/17 05:11 BASIC METABOLIC PANEL,BMP [CHEM] AM CBC WITH AUTO DIFF [HEME] AM - Plan Plan:: 56 yo fm with history of Hypothyroidism and NIDDM admitted for CAP, hyponatremia , Nausea and vomiting #CAP, right upper lobe #Fever, secondary to CAP #Leukocytosis, secondary to CAP, improving -Sputum gram stain growing gm+ cocci pairs and gm-rods Plan: -continue Azithromycin and Rocephin -continue duonebs PRN for SOB -f/u blood cultures drawn in ED -continue monitoring #Hypocalcemia, 7.4 -Ca 8.4 at admission, today 7.4 -obtain serum albumin and reassess #Hyponatremia, mild, improving -continue fluid restriction, increase to 1200 ml daily -continue to monitor #Hypokalemia -replace #Nausea and vomiting, improving -likely secondary to hyponatremia -continue Zofran 4 mg IV Q4H PRN #Headache -administer Toradol 30 mg IV single dose #NIDDM -recently diagnosed, on Metformin 500 mg BID at home plan: -hold Metformin -continue SSI low dose -BG check TIDAC and bedtime #Hypothyroidism -continue home meds DVT Prophylaxis: Heparin Code: full Diet: ADA, fluid restriction
[2017-06-21] MEDS ORDERED: Sodium Chloride 0.9% 1,000 ML IV SCH (08:45)
[2017-06-21] MEDS: Levothyroxine 125 MCG Tab PO SCH (09:18)
[2017-06-21] MEDS ORDERED: Potassium Chloride 20 MEQ Tab.ER PO STA (11:12)
[2017-06-21] MEDS: Calcium Carbonate 500 MG Tab.Chew PO SCH ×3 (13:14→23:08)
[2017-06-21] MEDS ORDERED: cefTRIAXone 1 GM in Sodium Chloride 0.9% 50 ML IV SCH (16:00)
[2017-06-21] MEDS ORDERED: Azithromycin 250 MG Tab PO SCH (17:00)
[2017-06-21] MEDS: Acetaminophen 325 MG Tab PO PRN (22:31)
[2017-06-22] MEDS: Heparin Sodium 5,000 Units/ML Vial SUBCUT SCH ×2 (02:52→09:58)
[2017-06-22] MEDS: Calcium Carbonate 500 MG Tab.Chew PO SCH (05:39)
[2017-06-22 06:26] LABS: CHLORIDE,CL 107 mmol/L (98-107); SODIUM,NA 140 mmol/L (136-145)
[2017-06-22] MEDS: Insulin Aspart 100 Units/ML 3 ML Pen SUBCUT SCH (07:19)
--- NOTE | 2017-06-22 09:52 | PCM.DCSUM1 ---
Discharge Summary - Discharge Data Discharge Date: 06/22/17 Discharge Disposition: Home, Self-Care 01 Condition: Good - Patient Summary/Data Hospital Course: 56-year-old female with history of NIDDM and Hypothyroidsim is admitted for pneumonia. She presented with fever, productive cough with yellow sputum and shortness of breath. She was found to have WBC count 20k, Na 129, glucose 203. CXR was consistent with pneumonia. She was treated with Rocephin and azithromcyin. She had improvement in symptoms and today patient is requesting discharge home. She was discharged home on Azithromycin to follow up with [facility]. - Patient Instructions Diet: Diabetic Diet Activity: As Tolerated - Discharge Plan Prescriptions/Med Rec: Azithromycin 500 mg PO DAILY #5 tablet Home Medications: Home Meds Levothyroxine 125 mcg PO DAILY 06/20/17 [History] metFORMIN [Glucophage XR] 500 mg PO DAILY 06/20/17 [History] Azithromycin 500 mg PO DAILY #5 tablet 06/22/17 [Rx] Forms: ED Department Discharge Referrals: PCP,None [Primary Care Provider] - - Patient Data Vitals - Most Recent: Last Vital Signs Temp 36.9 C 06/22/17 04:00 Pulse 68 06/22/17 04:00 Resp 20 06/22/17 04:00 BP 95/58 L 06/22/17 04:00 Pulse Ox 95 06/22/17 04:00 Weight - Most Recent: 64.41 kg I&O - Last 24 hours: Intake & Output 06/21/17 06/22/17 06/22/17 22:59 06:59 14:59 Intake Total 550 Output Total 550 Balance 0 Lab Results - Last 24 hrs: Laboratory Results - last 24 hr 06/21/17 06/21/17 06/22/17 Range/Units 11:36 16:13 05:36 WBC 14.31 H (4.0-11.0) K/uL RBC 3.69 L (4.30-5.90) M/uL Hgb 10.9 L (12.0-16.0) g/dL Hct 31.6 L (36.0-46.0) % MCV 85.6 (80.0-98.0) fL MCH 29.5 (27.0-32.0) pg MCHC 34.5 (31.0-37.0) g/dL RDW Std Deviation 37.3 (28.0-62.0) fl RDW Coeff of Hans 12 (11.0-15.0) % Plt Count 216 (150-400) K/uL MPV 8.70 (7.40-12.00) fL Neut % (Auto) 74.0 (48.0-80.0) % Lymph % (Auto) 19.4 (16.0-40.0) % [place] % (Auto) 6.1 (0.0-15.0) % Eos % (Auto) 0.3 (0.0-7.0) % Baso % (Auto) 0.2 (0.0-1.5) % Neut # (Auto) 10.6 H (1.4-5.7) K/uL Lymph # (Auto) 2.8 H (0.6-2.4) K/uL [place] # (Auto) 0.9 H (0.0-0.8) K/uL Eos # (Auto) 0.1 (0.0-0.7) K/uL Baso # (Auto) 0.0 (0.0-0.1) K/uL Nucleated RBC % 0.0 /100WBC Nucleated RBCs # 0 K/uL Sodium (136-145) mmol/L Potassium (3.5-5.1) mmol/L Chloride (98-107) mmol/L Carbon Dioxide (21.0-32.0) mmol/L BUN (7.0-18.0) mg/dL Creatinine (0.6-1.0) mg/dL Est Cr Clr Drug Dosing Estimated GFR (MDRD) ml/min Glucose (74-106) mg/dL POC Glucose 109 122 H (60-110) mg/dL Calcium (8.5-10.1) mg/dL 06/22/17 06/22/17 Range/Units 05:36 05:38 WBC (4.0-11.0) K/uL RBC (4.30-5.90) M/uL Hgb (12.0-16.0) g/dL Hct (36.0-46.0) % MCV (80.0-98.0) fL MCH (27.0-32.0) pg MCHC (31.0-37.0) g/dL RDW Std Deviation (28.0-62.0) fl RDW Coeff of Hans (11.0-15.0) % Plt Count (150-400) K/uL MPV (7.40-12.00) fL Neut % (Auto) (48.0-80.0) % Lymph % (Auto) (16.0-40.0) % [place] % (Auto) (0.0-15.0) % Eos % (Auto) (0.0-7.0) % Baso % (Auto) (0.0-1.5) % Neut # (Auto) (1.4-5.7) K/uL Lymph # (Auto) (0.6-2.4) K/uL [place] # (Auto) (0.0-0.8) K/uL Eos # (Auto) (0.0-0.7) K/uL Baso # (Auto) (0.0-0.1) K/uL Nucleated RBC % /100WBC Nucleated RBCs # K/uL Sodium 140 (136-145) mmol/L Potassium 3.7 (3.5-5.1) mmol/L Chloride 107 (98-107) mmol/L Carbon Dioxide 23.2 (21.0-32.0) mmol/L BUN 17 (7.0-18.0) mg/dL Creatinine 0.6 (0.6-1.0) mg/dL Est Cr Clr Drug Dosing TNP Estimated GFR (MDRD) > 60.0 ml/min Glucose 126 H (74-106) mg/dL POC Glucose 112 H (60-110) mg/dL Calcium 7.6 L (8.5-10.1) mg/dL ROSAMARIA Results - Last 24 hrs: Microbiology 06/20/17 14:54 Aerobic Blood Culture - Preliminary Blood - Venous - Lab Draw NO GROWTH AFTER 1 DAY Anaerobic Blood Culture - Preliminary NO GROWTH AFTER 1 DAY 06/20/17 14:44 Aerobic Blood Culture - Preliminary Blood - Venous NO GROWTH AFTER 1 DAY Anaerobic Blood Culture - Preliminary NO GROWTH AFTER 1 DAY Med Orders - Current: Current Medications Acetaminophen (Tylenol) 650 mg PO Q4H PRN PRN Reason: Pain (Mild 1-3)/fever Last Admin: 06/21/17 22:31 Dose: 650 mg Albuterol/Ipratropium (Duoneb 3.0-0.5 Mg/3 Ml) 3 ml NEB Q4HRRT PRN PRN Reason: Shortness Of Breath/wheezing Azithromycin (Zithromax) 500 mg PO Q24H [facility] Last Admin: 06/21/17 16:32 Dose: 500 mg Calcium Carbonate/Glycine (Tums) 1,000 mg PO QID [facility] Last Admin: 06/22/17 05:39 Dose: 1,000 mg Docusate Sodium (Colace) 100 mg PO BID PRN PRN Reason: Constipation Heparin Sodium (Porcine) (Heparin Sodium) 5,000 units SUBCUT Q8H [facility] Last Admin: 06/22/17 02:52 Dose: 5,000 units Ceftriaxone Sodium 1 gm/ (Sodium Chloride) 50 mls @ 100 mls/hr IV Q24H [facility] Last Infusion: 06/21/17 15:45 Dose: Infused Sodium Chloride (Normal Saline) 1,000 mls @ 75 mls/hr IV ASDIRECTED [facility] Last Admin: 06/21/17 22:35 Dose: 75 mls/hr Insulin Aspart (Novolog) 0 unit SUBCUT TIDAC [facility]; Protocol Last Admin: 06/22/17 07:19 Dose: Not Given Levothyroxine Sodium (Levothyroxine) 125 mcg PO DAILY [facility] Last Admin: 06/21/17 09:18 Dose: 125 mcg Ondansetron HCl (Zofran) 4 mg IVPUSH Q6H PRN PRN Reason: Nausea/Vomiting Last Admin: 06/21/17 08:07 Dose: 4 mg Discontinued Medications Acetaminophen (Tylenol Extra Strength) 1,000 mg PO ONETIME ONE Stop: 06/20/17 14:33 Last Admin: 06/20/17 14:53 Dose: 1,000 mg Azithromycin (Zithromax) Confirm Administered Dose 500 mg IV .STK-MED ONE Stop: 06/20/17 17:06 Last Admin: 06/20/17 17:11 Dose: 500 mg Sodium Chloride (Normal Saline) 1,000 mls @ 999 mls/hr IV STAT ONE Stop: 06/20/17 15:04 Last Admin: 06/20/17 14:27 Dose: 999 mls/hr Azithromycin 500 mg/ Sodium (Chloride) 500 mls @ 250 mls/hr IV ONETIME ONE Stop: 06/20/17 18:24 Last Admin: 06/20/17 17:26 Dose: Not Given Ceftriaxone Sodium/Dextrose 1 (gm/ Premix) 50 mls @ 100 mls/hr IV ONETIME ONE Stop: 06/20/17 16:54 Last Admin: 06/20/17 20:00 Dose: 100 mls/hr Sodium Chloride (Normal Saline) Confirm Administered Dose 250 mls @ as directed .ROUTE .STK-MED ONE Stop: 06/20/17 17:08 Last Admin: 06/20/17 17:24 Dose: Not Given Azithromycin 500 mg/ Sodium (Chloride) 250 mls @ 250 mls/hr IV ONETIME ONE Stop: 06/20/17 17:24 Last Admin: 06/20/17 17:18 Dose: 250 mls/hr Sodium Chloride (Normal Saline) 500 mls @ 75 mls/hr IV .BOLUS ONE Stop: 06/21/17 01:45 Last Admin: 06/20/17 19:46 Dose: 75 mls/hr Ketorolac Tromethamine (Toradol) 30 mg IVPUSH ONETIME ONE Stop: 06/20/17 14:21 Last Admin: 06/20/17 14:27 Dose: 30 mg Ketorolac Tromethamine (Toradol) Confirm Administered Dose 30 mg .ROUTE .STK- MED ONE Stop: 06/20/17 14:22 Last Admin: 06/20/17 14:33 Dose: Not Given Ketorolac Tromethamine (Toradol) 30 mg IVPUSH ONETIME ONE Stop: 06/21/17 08:01 Last Admin: 06/21/17 08:49 Dose: 30 mg Ketorolac Tromethamine (Toradol) 30 mg IVPUSH ONETIME ONE Stop: 06/21/17 16:21 Last Admin: 06/21/17 16:33 Dose: 30 mg Ondansetron HCl (Zofran) 4 mg IVPUSH ONETIME ONE Stop: 06/20/17 14:15 Last Admin: 06/20/17 14:26 Dose: 4 mg Potassium Chloride (Klor-Con M20) 40 meq PO ONETIME STA Stop: 06/21/17 11:13 Last Admin: 06/21/17 11:32 Dose: 40 meq
[2017-06-22] MEDS: Levothyroxine 125 MCG Tab PO SCH (09:57)
== END 2017-06-22 11:35 | disposition home or self-care (01) ==
LOC: MW.ED 14:01 → MW.MS 16:25
PROVIDERS: ADMIT Family Medicine; ATTEND Family Medicine
DX: J18.9 Pneumonia, unspecified organism (principal); E11.9 Type 2 diabetes mellitus without complications; E03.9 Hypothyroidism, unspecified; E87.1 Hypo-osmolality and hyponatremia; Z79.899 Other long term (current) drug therapy; Z79.84 Long term (current) use of oral hypoglycemic drugs
CPT/HCPCS: 36415; 70450; 71045; 80048; 80053; 80076; 82962; 84484; 85025; 87040; 87070; 87077; 87186; 87205; 93005; 96361; 96365; 96367; 96372; 96375; 96376; 99285; A9270; G0378; J0456; J0696; J1644; J1885; J2405; J7040; J7050

== ENCOUNTER 2021-05-29 11:42 | Emergency (ER) | payer SELFPAY ==
[2021-05-29] MEDS ORDERED: Orphenadrine 60 MG/2 ML Inj IM ONE (13:51)
[2021-05-29] MEDS ORDERED: Ketorolac 60 MG/2 ML SDV IM ONE (13:51)
== END 2021-05-29 14:52 | disposition home or self-care (01) ==
LOC: MW.ED 11:42
DX: M54.50 Low back pain, unspecified (principal); E11.9 Type 2 diabetes mellitus without complications; E03.9 Hypothyroidism, unspecified; Z91.09 Other allergy status, other than to drugs and biological substances; Z79.899 Other long term (current) drug therapy; Z86.16 Personal history of COVID-19
CPT/HCPCS: 81003; 96372; 99283; J1885; J2360